=== PATIENT | female | born 1980 | race Caucasian/White ===

== ENCOUNTER → 2016-10-14 | Outpatient (CLI) | payer BC ==
[~2016-10-14] MED LIST: ARMOUR THYROID120 MG PO; CALCIUM 600-D 61 TAB PO; CARAFATE S1 GM/10 ML PO; LEVOXYL0.125 MG PO; MAGNESIUM250 M1 PO; MAKENA250 MG/ML IM; MOTRIN 600600 MG/TAB PO; PERCOCET 325 MG1 TA2 PO; PHENERGAN 25 TA25 MG PO; PREVACID 30MG30 M1 PO; PRIL40 PO; VIIBRYD40 MG PO; VITAMIN D 1001000 IU PO; WELLBUTRIN XL150 MG PO; ZOFRAN 4MG T4 MG/TAB PO
== END ==
LOC: BHSO 08:11
DX: F33.1 Major depressive disorder, recurrent, moderate (principal)

== ENCOUNTER 2016-10-27 09:27 | Emergency (ER) | payer BC ==
[~2016-10-27] VITALS: Ht 170.2 cm; Wt 84.5 kg
[~2016-10-27 09:27] MED LIST changes: -CALCIUM 600-D 61 TAB PO; -CARAFATE S1 GM/10 ML PO; -LEVOXYL0.125 MG PO; -MAGNESIUM250 M1 PO; -PHENERGAN 25 TA25 MG PO; -PREVACID 30MG30 M1 PO; -PRIL40 PO; -VITAMIN D 1001000 IU PO; -WELLBUTRIN XL150 MG PO; -ZOFRAN 4MG T4 MG/TAB PO
[2016-10-27] MEDS ORDERED: ZOFRAN 4MG T4 MG/TAB PO (10:05)
[2016-10-27 10:27] LABS: BASO # 0.1 (0.0-0.2); BASO % 0.5 % (0.0-2.0); EOS # 0.1 (0.0-0.7); EOS % 0.7 % (0-4.0); GRAN # 6.6 (1.4-6.5); GRAN % 72.2 % (42.2-75.2); HEMATOCRIT 47.6 % (37.0-47.0); HEMOGLOBIN 16.6 g/dl (12.5-16.0); LYMPH # 1.8 (1.2-3.4); LYMPH % 19.3 % (20.0-51.0); MEAN CELL VOLUME 82 fl (80.0-100.0); MEAN CORPUSCULAR HEMOGLOBIN 29 pg (27.0-31.0); MEAN CORPUSCULAR HGB CONC 35 g/dl (33.0-37.0); MEAN PLATELET VOLUME 10.2 fl (7.4-10.4); MONO # 0.6 (0.1-0.6); MONO % 6.9 % (1.7-9.3); PLATELET COUNT 315 K/mm3 (130-400); REDCELL DISTRIBUTION WIDTH-CV 13.2 % (11.5-14.5); WHITE BLOOD COUNT 9.2 K/mm3 (4.8-10.8)
[2016-10-27 10:39] LABS: ADJUSTED CALCIUM 8.1 mg/dL (8.4-10.2); BILIRUBIN,TOTAL 0.9 mg/dL (0.0-1.0); CALCIUM 8.9 mg/dL (8.4-10.2); CREATININE, serum 0.96 mg/dL (0.52-1.25); POTASSIUM 3.5 mmol/L (3.4-5.0); TOTAL PROTEIN 8.4 gm/dL (6.4-8.2)
[2016-10-27] MEDS ORDERED: WELLBUTRIN XL150 MG PO (10:58)
[2016-10-27 11:33] VITALS: BP 110/60; PULSE 96; TEMP 98.2
[2016-10-27 11:59] LABS: PH 6 (5-8); URINE APPEARANCE Hazy; URINE BACTERIA Rare /hpf; URINE BILIRUBIN Negative (NEGATIVE); URINE BLOOD 1+ (NEGATIVE); URINE COLOR Amber; URINE GLUCOSE Negative (NEGATIVE); URINE KETONE 1+ (NEGATIVE); URINE UROBILINOGEN Negative (NEGATIVE)
== END 2016-10-27 11:54 | disposition home or self-care (01) ==
LOC: COL.ER 09:27
PROVIDERS: Emergency Medicine
DX: K52.9 Noninfective gastroenteritis and colitis, unspecified (principal)
CPT/HCPCS: J2405; J2550; J7030

== ENCOUNTER 2016-11-25 18:29 | Emergency (ER) | payer BC ==
[~2016-11-25] VITALS: Ht 170.2 cm; Wt 84.5 kg
[~2016-11-25 18:29] MED LIST changes: +WELLBUTRIN XL150 MG PO; +ZOFRAN 4MG T4 MG/TAB PO
[2016-11-25 18:36] VITALS: TEMP 98.4
[2016-11-25] MEDS ORDERED: LEVOXYL0.125 MG PO (18:39)
[2016-11-25 20:10] LABS: BASO # 0.1 (0.0-0.2); BASO % 0.6 % (0.0-2.0); EOS # 0.5 (0.0-0.7); EOS % 4.7 % (0-4.0); GRAN % 62.2 % (42.2-75.2); HEMATOCRIT 39.4 % (37.0-47.0); HEMOGLOBIN 13.2 g/dl (12.5-16.0); LYMPH # 2.6 (1.2-3.4); LYMPH % 26.9 % (20.0-51.0); MEAN CELL VOLUME 86 fl (80.0-100.0); MEAN CORPUSCULAR HEMOGLOBIN 29 pg (27.0-31.0); MEAN CORPUSCULAR HGB CONC 34 g/dl (33.0-37.0); MEAN PLATELET VOLUME 10.3 fl (7.4-10.4); MONO # 0.5 (0.1-0.6); MONO % 5.3 % (1.7-9.3); PLATELET COUNT 254 K/mm3 (130-400); RED BLOOD COUNT 4.58 M/mm3 (4.10-5.30); REDCELL DISTRIBUTION WIDTH-CV 14.1 % (11.5-14.5); WHITE BLOOD COUNT 9.7 K/mm3 (4.8-10.8)
[2016-11-25 20:20] LABS: ADJUSTED CALCIUM 8.7 mg/dL (8.4-10.2); ALBUMIN 4.1 gm/dL (3.5-5.0); BILIRUBIN,TOTAL 0.3 mg/dL (0.0-1.0); CALCIUM 8.8 mg/dL (8.4-10.2); CREATININE, serum 0.7 mg/dL (0.52-1.25); POTASSIUM 3.6 mmol/L (3.4-5.0); TOTAL PROTEIN 7.1 gm/dL (6.4-8.2)
[2016-11-25 20:28] LABS: PH 6 (5-8); URINE APPEARANCE Cloudy; URINE BACTERIA Many /hpf; URINE BILIRUBIN Negative (NEGATIVE); URINE BLOOD Negative (NEGATIVE); URINE COLOR Yellow; URINE GLUCOSE Negative (NEGATIVE); URINE KETONE Negative (NEGATIVE); URINE RBC 0-2 /hpf; URINE UROBILINOGEN Negative (NEGATIVE)
[2016-11-25] MEDS ORDERED: PRIL40 PO (20:29)
[2016-11-25] MEDS ORDERED: VITAMIN D 1001000 IU PO (20:30)
[2016-11-25] MEDS ORDERED: MAGNESIUM250 M1 PO (20:30)
[2016-11-25] MEDS ORDERED: CALCIUM 600-D 61 TAB PO (20:30)
[2016-11-25] MEDS ORDERED: PHENERGAN 25 TA25 MG PO (21:08)
[2016-11-25 21:45] VITALS: BP 115/74; PULSE 102
== END 2016-11-25 21:44 | disposition home or self-care (01) ==
LOC: COL.ER 18:29
PROVIDERS: Emergency Medicine
DX: R10.11 Right upper quadrant pain (principal); R11.0 Nausea; R63.0 Anorexia
CPT/HCPCS: C9113; J1170; J2550; J7030; Q9967

== ENCOUNTER → 2016-12-01 | Outpatient (CLI) | payer BC ==
[~2016-12-01] MED LIST changes: +CALCIUM 600-D 61 TAB PO; +CARAFATE S1 GM/10 ML PO; +LEVOXYL0.125 MG PO; +MAGNESIUM250 M1 PO; +PHENERGAN 25 TA25 MG PO; +PREVACID 30MG30 M1 PO; +PRIL40 PO; +VITAMIN D 1001000 IU PO
== END ==
LOC: COL.RAD 08:05
DX: R10.11 Right upper quadrant pain (principal); R11.0 Nausea
CPT/HCPCS: A9537

== ENCOUNTER 2016-12-15 05:34 | Day surgery (SDC) | payer BC ==
[~2016-12-15] VITALS: Ht 170.2 cm; Wt 87.5 kg
[~2016-12-15 05:34] MED LIST changes: -CARAFATE S1 GM/10 ML PO; -PREVACID 30MG30 M1 PO
[2016-12-15 06:09] VITALS: BP 113/74; PULSE 100; TEMP 98
[2016-12-15] MEDS ORDERED: PREVACID 30MG30 M1 PO (08:19)
[2016-12-15] MEDS ORDERED: CARAFATE S1 GM/10 ML PO (08:20)
[2016-12-15 09:15] VITALS: BP 113/70; PULSE 84
[2016-12-15 09:30] VITALS: BP 115/75; PULSE 98
[2016-12-15 09:40] VITALS: TEMP 98
== END 2016-12-15 10:10 | disposition home or self-care (01) ==
LOC: SDCO 05:34
DX: K31.9 Disease of stomach and duodenum, unspecified (principal); K29.60 Other gastritis without bleeding; K25.9 Gastric ulcer, unspecified as acute or chronic, without hemorrhage or perforation; K29.80 Duodenitis without bleeding; E78.5 Hyperlipidemia, unspecified; F17.210 Nicotine dependence, cigarettes, uncomplicated; K21.9 Gastro-esophageal reflux disease without esophagitis; F32.9 Major depressive disorder, single episode, unspecified; R73.03 Prediabetes; E89.0 Postprocedural hypothyroidism
CPT/HCPCS: J0690; J1100; J1170; J1885; J2250; J2270; J2405; J2704; J2710; J3010; J7120

== ENCOUNTER → 2017-03-20 | Outpatient (CLI) | payer BC ==
[~2017-03-20] MED LIST changes: +CARAFATE S1 GM/10 ML PO; +PREVACID 30MG30 M1 PO
== END ==
LOC: BHSO 08:54
DX: F33.1 Major depressive disorder, recurrent, moderate (principal)

== ENCOUNTER → 2017-09-15 | Outpatient (CLI) | payer BC | LOC: BHSO 08:23 | DX: F33.41 Major depressive disorder, recurrent, in partial remission (principal) | CPT/HCPCS: G0463 ==

== ENCOUNTER → 2017-12-14 | Outpatient (CLI) | payer BC | LOC: BHSO 07:57 | DX: F33.42 Major depressive disorder, recurrent, in full remission (principal) | CPT/HCPCS: G0463 ==

== ENCOUNTER → 2018-08-20 | Outpatient (CLI) | payer BC | LOC: BHSO 09:51 | DX: F43.10 Post-traumatic stress disorder, unspecified (principal) | CPT/HCPCS: G0463 ==

== ENCOUNTER 2020-05-23 22:47 | Observation (INO) | payer BC ==
[~2020-05-23] VITALS: Ht 170.2 cm; Wt 81.0 kg
[2020-05-24] VITALS (19 sets, daily range): BP systolic 100–108; BP diastolic 54–76; PULSE 84–104; TEMP 98.1–98.5; O2SAT 96–98
[2020-05-24 00:05] LABS: BASO % 0.4 % (0.0-2.0); EOS # 0.1 (0.0-0.7); EOS % 1.5 % (0-4.0); GRAN # 5.2 (1.4-6.5); GRAN % 61.6 % (42.2-75.2); HEMATOCRIT 37.5 % (37.0-47.0); HEMOGLOBIN 12.9 g/dl (12.5-16.0); LYMPH # 2.5 (1.2-3.4); LYMPH % 29.6 % (20.0-51.0); MEAN CELL VOLUME 85 fl (80.0-100.0); MEAN CORPUSCULAR HEMOGLOBIN 29 pg (27.0-31.0); MEAN CORPUSCULAR HGB CONC 34 g/dl (33.0-37.0); MEAN PLATELET VOLUME 10.3 fl (7.4-10.4); MONO # 0.6 (0.1-0.6); MONO % 6.7 % (1.7-9.3); PLATELET COUNT 215 K/mm3 (130-400); RED BLOOD COUNT 4.44 M/mm3 (4.10-5.30); REDCELL DISTRIBUTION WIDTH-CV 13.7 % (11.5-14.5)
[2020-05-24 00:17] LABS: ALANINE AMINOTRANSFERASE 10 U/L (4-34); ALBUMIN 4.2 gm/dL (3.5-5.0); ALKALINE PHOSPHATASE 53 U/L (50-136); ANION GAP 9 mmol/L (7-16); AST,SGOT 19 U/L (15-37); BILIRUBIN,TOTAL 0.4 mg/dL (0.0-1.0); BLOOD UREA NITROGEN 16 mg/dL (7-17); CALCIUM 8.5 mg/dL (8.4-10.2); CARBON DIOXIDE 24 mmol/L (22-30); CHLORIDE 105 mmol/L (98-107); CREATININE, serum 0.64 (0.52-1.25); GLUCOSE 101 mg/dL (74-106); POTASSIUM 3.8 mmol/L (3.4-5.0); SODIUM 138 mmol/L (137-145)
[2020-05-24 00:32] LABS: TROPONIN-I < 0.012 ng/mL (0.000-0.035)
[2020-05-24] MEDS ORDERED: NP THYROID90 MG PO (04:35)
[2020-05-24] MEDS ORDERED: ALEVE 220MG220 MG PO (04:37)
[2020-05-24 05:32] LABS: CHOLESTEROL 212 mg/dL (120-200); CHOLESTEROL RISK RATIO 3.5; HDL CHOLESTEROL 59 mg/dL; LDL CHOLESTEROL 140 mg/dL; MAGNESIUM 1.9 mg/dL (1.6-2.3); TRIGLYCERIDE 66 mg/dL
[2020-05-24 05:44] LABS: TROPONIN-I < 0.012 ng/mL (0.000-0.035)
--- NOTE | 2020-05-24 07:00 | NUR ---
RECEIVED REPORT FROM YUAN MACIAS. PT RESTING EASILY ON RA. CALL LIGHT WITHIN REACH. VSS. DENIES CP AT THIS TIME.
--- NOTE | 2020-05-24 10:03 | NUR ---
Physician Office Clin Asst met with patient to discuss discharge planning. Patient lives in [place] with her fianceSeth (ph#[phone]) and her two children, ages 10 and 5. Patient also has an adult child, Carmen (ph#[phone]). Patient sees Dr. Kimball for primary care and obtains medications from [facility] with no difficulties. Patient does not use any DME and reports independence with [employer]. 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 Patient does not have Advance Directives but states it's something she will do at some point. Patient is not and has one adult child, Carmen who would be legal next of kin. Patient plans to return home upon discharge. SW contacted patient's fiSeth mendoza to review discharge plan. Seth states he is at home with the kids right now and has no concerns at this time with patient returning home upon discharge. SW will continue to follow.
--- NOTE | 2020-05-24 10:06 | NUR ---
Initial visit; Patient thanked Portable Router Operator for looking in on her and offering God's blessings and to keep her in Portable R[employer] Operator's prayers.
--- NOTE | 2020-05-24 11:39 | NUR ---
SPOKE WITH DR JORGE ABOUT POC AND CARDIO CONSULT.
--- NOTE | 2020-05-24 12:15 | NUR ---
DR JORGE AT BEDSIDE FOR ASSESSMENT AND TO DISCUSS POC WITH PT.
--- NOTE | 2020-05-24 12:29 | NUR ---
PER DR JORGE'S REQUEST, SPOKE TO VERNA AND ASKED IF HE CAN LOOK AT THE US ECHO AND THAT TROPS AND EKG ARE NEGATIVE AND PT DENIES ANYMORE CP. DR JORGE STATES IF AFTER DR GILLESPIE LOOKS AT ECHO [place] IS FINE THEN PT CAN DC HOME. WILL WAIT FOR RESULTS FROM PHYSICIANS.
[2020-05-24] MEDS ORDERED: PROTONIX 40MG T40 MG PO (14:03)
--- NOTE | 2020-05-24 14:50 | NUR ---
PT AMBULATED OUT OF UNIT WITH RN. DENIES ANY CP UPON DEPARTURE. ALL PERSONAL BELONGINGS SENT HOME WITH PT.
== END 2020-05-24 14:50 | disposition home or self-care (01) ==
LOC: COL.ER 22:47 → ICU 05-24 02:02
PROVIDERS: Emergency Medicine; Nurse Practitioner Primary Care; ADMIT Hospitalist
DX: R07.9 Chest pain, unspecified (principal); E03.9 Hypothyroidism, unspecified; F32.9 Major depressive disorder, single episode, unspecified; F17.210 Nicotine dependence, cigarettes, uncomplicated; Z20.822 Contact with and (suspected) exposure to COVID-19
CPT/HCPCS: J7030; Q9967